=== PATIENT | female | born 1995 | race Caucasian/White ===

== ENCOUNTER 2023-12-07 22:39 | Emergency (ER) | payer SELFPAY ==
[2023-12-07 22:45] VITALS: BP 121/73; PULSE 61; TEMP 36.8; O2SAT 98; BMI 20.8
--- NOTE | 2023-12-07 22:57 | ED.DENTAL1 ---
HPI - Dental/Oral General Chief complaint: Dental/Oral Stated complaint: BROKEN TOOTH, POSS INFECTION Time Seen by Provider: 12/07/23 22:53 Source: patient Mode of arrival: walk-in Limitations: no limitations History of Present Illness HPI Narrative: states she has cracked tooth . Has been present for a while but now has increased pain past couple of days. Throbbing pain. no fever or nausea Related Data Allergies Allergy/AdvReac Type Severity Reaction Status Date / Time No Known Drug Allergies Allergy Verified 12/07/23 22:45 Review of Systems ROS Status of ROS 10 or more systems reviewed and unremarkable except as noted in history and below Exam Constitutional Vital Signs, click to edit/add: Last Vital Signs Temp 98.2 F 12/07/23 22:45 Pulse 61 12/07/23 22:45 Resp 18 12/07/23 22:45 BP 121/73 12/07/23 22:45 Pulse Ox 98 12/07/23 22:45 O2 Del Method Room Air 12/07/23 22:45 Common normals: no apparent distress, average body habitus, oriented x3, no limitations, healthy appearing, alert and well nourished [facility] Other: left lower pos molar dental caries tender Eye Common normals: PERRL, EOMs intact bilaterally and conjunctivae normal Respiratory Common normals: normal respiratory effort, no retractions, no use of accessory muscles and clear to auscultation bilaterally Cardio Common normals: regular rate, regular rhythm, S1 normal heart sound and S2 normal heart sound Extremity Common normals: normal to inspection and full ROM Neuro Common normals: oriented x3, CN's II-XII intact bilaterally, moves all extremities and no focal motor deficits Psych Appearance: grossly normal Course Vital Signs Vital signs: Vital Signs Temperature 98.2 F 12/07/23 22:45 Pulse Rate 61 12/07/23 22:45 Respiratory Rate 18 12/07/23 22:45 Blood Pressure 121/73 12/07/23 22:45 Pulse Oximetry 98 12/07/23 22:45 Oxygen Delivery Method Room Air 12/07/23 22:45 Temperature 98.2 F 12/07/23 22:45 Pulse Rate 61 12/07/23 22:45 Respiratory Rate 18 12/07/23 22:45 Blood Pressure 121/73 12/07/23 22:45 Pulse Oximetry 98 12/07/23 22:45 Oxygen Delivery Method Room Air 12/07/23 22:45 MDM - Dental/Oral MDM Narrative Medical decision making narrative: presents with increasing dental pain. likely abscess developing as the tooth has been cracked for some time but now has worsening throbbing pain. Will treat as an abscess and recommend she follow up with her dentist Discharge Plan Discharge Stand Alone Forms: Portal Instructions Chief Complaint: Dental/Oral Clinical Impression: Dental abscess Patient Disposition: Home, Self-Care Print Language: Danish Instructions: Dental Abscess (ED) Additional Instructions: follow up with your dentist Referrals: Physician,Non-Staff, MD [Primary Care Provider] - 1 week
[2023-12-07] MEDS: AMOXICILLIN 500 MG CAPSULE 1000 MG PO (23:15)
[2023-12-07 23:18] VITALS: BP 123/78; PULSE 89; O2SAT 97
--- NOTE | 2023-12-07 23:24 | PC.NURSE ---
Pt had cracked tooth in left lower molar, pain radiating to left jaw and neck. Airway intact.
== END 2023-12-07 23:18 | disposition home or self-care (01) ==
PROVIDERS: Emergency Provider Internal Medicine
DX: K04.7 Periapical abscess without sinus (principal)
CPT/HCPCS: 99283